=== PATIENT | male | born 2005 | race Caucasian/White ===

== ENCOUNTER 2025-01-17 20:09 | Emergency (ER) | payer OTHER ==
[~2025-01-17] VITALS: Ht 182.9 cm; Wt 107.2 kg
--- OUTSIDE RECORDS SUMMARY | 2025-01-17 20:17 | XMS ---
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 E.Praful VISIT COUNT (12 MO.) 4 [facility] 1 ELISEO OrozcoTrainer HKenia TOTAL 5 NOTE: Visits indicate total known visits. ED/UCC VISIT TRACKING (12 MO.) 01/17/2025 20:[address] [facility] [place] TYPE: Emergency COMPLAINT: - LUMP ON NECK, NAUSEA 12/19/2024 15:20 [facility] [place] [facility] TYPE: Emergency DIAGNOSES: - Acute pharyngitis, unspecified - Concussion without loss of consciousness, initial encounter - head inj - Head Injury (With Loc) 09/27/2024 18:14 [facility] [place] (Daron Neri) TYPE: Emergency DIAGNOSES: - Acute gastritis without bleeding - abd pain, vomiting - Abdominal Pain - Emesis 05/02/2024 12:19 [facility] Daron [place] ([place]) TYPE: Emergency DIAGNOSES: - Acute gastritis with bleeding - blood in stool 03/07/2024 05:47 [facility] Daron [place] ([place]) TYPE: Emergency DIAGNOSES: - Acute pharyngitis, unspecified - Acute suppurative otitis media without spontaneous rupture of ear drum, right ear - Otalgia - rt ear pain INPATIENT VISIT TRACKING (12 MO.) No inpatient visits to display in this time frame [email or web address]
[2025-01-17] MEDS ORDERED: KETOROLAC TROMETHAMINE 30 MG/ML VIAL IV ONE (22:00)
[2025-01-17 22:08] LABS: BASOPHILS 0.6 % (0.2-1.2); EOSINOPHILS 0.2 % (0.8-7.0); LYMPHOCYTES 18.3 % (21.8-53.1); MCH 29.1 PG (25.7-32.2); MCHC 34.1 g/dL (32.3-36.5); MCV 85.2 fL (79.0-92.2); MONOCYTES 5.8 % (5.3-12.2); NEUTROPHILS 74.8 % (34.0-67.9); RBC 4.92 M/uL (4.63-6.08)
[2025-01-17 22:25] LABS: ALT (SGPT) 23.0 U/L (14-59); AST (SGOT) 15.0 U/L (15-37); GLOMERULAR FILTRATION RATE,EST 98.0 mL/min (>60); PROTEIN, TOTAL 7.6 g/dL (6.4-8.2); UREA NITROGEN 13.0 mg/dL (7-18)
[2025-01-17 23:55] VITALS: BP 150/82
== END 2025-01-17 23:54 | disposition home or self-care (01) ==
LOC: ED 20:09
PROVIDERS: Internal Medicine
DX: S16.1XXA Strain of muscle, fascia and tendon at neck level, initial encounter (principal); X58.XXXA Exposure to other specified factors, initial encounter; J02.9 Acute pharyngitis, unspecified
CPT/HCPCS: 36415; 70491; 80053; 85025; 87651; 96374; 99284-25; J1885; Q9967